=== PATIENT | female | born 1995 | race American Indian/Alaskan Native ===

== ENCOUNTER 2017-04-14 20:53 | Emergency (ER) | payer SELFPAY ==
[2017-04-14 21:49] VITALS: BP 120/82
[2017-04-14 22:10] LABS: Basophils % (Auto) 0.6 % (0.0-1.8); Eosinophils % (Auto) 3.2 % (0.0-4.3); Hematocrit 38.2 % (30.3-42.9); Hemoglobin 13.2 gm/dl (10.1-14.3); Mean Corpuscular HGB Conc 35 % (30-34); Mean Corpuscular Hemoglobin 35 pg (28-32); Mean Corpuscular Volume 100 fl (79-97); Platelet Count 325 K/mm3 (140-440); Red Blood Count 3.81 M/mm3 (3.65-5.03); Red Cell Distribution Width 12.9 % (13.2-15.2); White Blood Count 10.7 K/mm3 (4.5-11.0)
--- NOTE | 2017-04-14 23:22 | Emergency Department Report ---
ED Back Pain/Injury HPI - General Chief Complaint: Back Pain/Injury Stated Complaint: LOWER BACK PAIN Time Seen by Provider: 04/14/17 22:44 Source: patient Limitations: No Limitations - History of Present Illness Initial Comments: This is a 22-year-old female nontoxic, well nourished in appearance, no acute signs of distress presents to the ED complaining of low back pain 1 week. Patient denies any trauma to region. Patient stated back pain radiates to lower left extremity. Patient denies any numbness, tingling, fever, chills, stiff neck, headache, nausea or vomiting. He describes pain as aching with level of 8 out of 10. He denies any dysuria, polyuria, or hematuria. Last menstrual cycle 04/13/70. Patient states allergies to ibuprofen. 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 MD Complaint: back pain -: Gradual, week(s) (1) Similar Symptoms Previously: No Radiation: left leg Severity: mild Severity scale (0 -10): 8 Quality: aching Consistency: constant Improves With: none Worsens With: none Context: while lifting, turning/twisting, bending Associated Symptoms: denies other symptoms. denies: confusion, weakness, chest pain, numbness, difficulty walking, cough, difficulty urinating, diaphoresis, incontinence, fever/chills, constipation, headaches, abdominal pain, loss of appetite, malaise, nausea/vomiting, rash, seizure, shortness of breath, syncope - Related Data Previous Rx's Medication Instructions Recorded Last Taken Type Naproxen [Naproxen TAB] 250 mg PO BID PRN #14 tablet 08/12/16 Unknown Rx Cyclobenzaprine [Flexeril] 10 mg PO TID PRN #15 tablet 04/14/17 Unknown Rx Naproxen [Naprosyn TAB] 500 mg PO BID #30 tablet 04/14/17 Unknown Rx Ciprofloxacin HCl [Ciprofloxacin 500 mg PO Q12HR #14 tab 04/15/17 Unknown Rx TAB] Allergies Allergy/AdvReac Type Severity Reaction Status Date / Time ibuprofen [From Motrin] AdvReac Vomiting Verified 04/14/17 21:38 ED Review of Systems ROS: Stated complaint: LOWER BACK PAIN Other details as noted in HPI Constitutional: denies: chills, fever Eyes: denies: eye pain, eye discharge, vision change ENT: denies: ear pain, throat pain Respiratory: denies: cough, shortness of breath, wheezing Cardiovascular: denies: chest pain, palpitations Endocrine: no symptoms reported Gastrointestinal: denies: abdominal pain, nausea, diarrhea Genitourinary: denies: urgency, dysuria, discharge Musculoskeletal: denies: back pain, joint swelling, arthralgia Skin: denies: rash, lesions Neurological: denies: headache, weakness, paresthesias Psychiatric: denies: anxiety, depression Hematological/Lymphatic: denies: easy bleeding, easy bruising ED Past Medical Hx - Past Medical History Previous Medical History?: No Hx Hypertension: Yes Hx Renal Disease: Yes (DIALYSIS ) Hx Psychiatric Treatment: (depression) Additional medical history: Pt Denies - Surgical History Past Surgical History?: No Additional Surgical History: Pt Denies - Social History Smoking Status: Current Every Day Smoker Substance Use Type: None - Medications Home Medications: Home Medications Medication Instructions Recorded Confirmed Last Taken Type Naproxen [Naproxen TAB] 250 mg PO BID PRN #14 tablet 08/12/16 Unknown Rx Cyclobenzaprine [Flexeril] 10 mg PO TID PRN #15 tablet 04/14/17 Unknown Rx Naproxen [Naprosyn TAB] 500 mg PO BID #30 tablet 04/14/17 Unknown Rx Ciprofloxacin HCl [Ciprofloxacin 500 mg PO Q12HR #14 tab 04/15/17 Unknown Rx TAB] ED Physical Exam - General Limitations: No Limitations General appearance: alert, in no apparent distress - Head Head exam: Present: atraumatic, normocephalic, normal inspection - Eye Eye exam: Present: normal appearance, PERRL, EOMI. Absent: scleral icterus, conjunctival injection, nystagmus, periorbital swelling, periorbital tenderness Pupils: Present: normal accommodation - ENT ENT exam: Present: normal exam, normal orophraynx, mucous membranes moist, TM's normal bilaterally, normal external ear exam - Neck Neck exam: Present: normal inspection, full ROM. Absent: tenderness, meningismus, lymphadenopathy, thyromegaly - Respiratory Respiratory exam: Present: normal lung sounds bilaterally. Absent: respiratory distress, wheezes, rales, rhonchi, stridor, chest wall tenderness, accessory muscle use, decreased breath sounds, prolonged expiratory - Cardiovascular Cardiovascular Exam: Present: regular rate, normal rhythm, normal heart sounds. Absent: bradycardia, tachycardia, irregular rhythm, systolic murmur, diastolic murmur, rubs, gallop - GI/Abdominal GI/Abdominal exam: Present: soft, normal bowel sounds. Absent: distended, tenderness, guarding, rebound, rigid, diminished bowel sounds - Rectal Rectal exam: Present: deferred - Extremities Exam Extremities exam: Present: normal inspection, full ROM, normal capillary refill. Absent: tenderness, pedal edema, joint swelling, calf tenderness - Back Exam Back exam: Present: normal inspection, full ROM, paraspinal tenderness (lumbar region), vertebral tenderness (lumbar spinal tenderness). Absent: tenderness, CVA tenderness (R), CVA tenderness (L), muscle spasm, rash noted - Expanded Back Exam Expanded Back exam: Present: normal rectal tone. Absent: saddle anesthesia Back exam: Negative Straight Leg Raising: Left, Right - Neurological Exam Neurological exam: Present: alert, oriented X3, CN II-XII intact, normal gait, reflexes normal - Psychiatric Psychiatric exam: Present: normal affect, normal mood - Skin Skin exam: Present: warm, dry, intact, normal color. Absent: rash ED Course Vital Signs 04/14/17 21:36 Temperature 99.0 F Pulse Rate 87 Respiratory 18 Rate Blood Pressure 120/82 O2 Sat by Pulse 100 Oximetry - Reevaluation(s) Reevaluation #1: 04/14/17 23:22 Patient is speaking in full sentences with no signs of distress noted. Reevaluation #2: 04/14/17 23:25 pt stated take Naproxen at home with no allergies or adverse side effects ED Medical Decision Making - Lab Data Result diagrams: 04/14/17 21:55 - Differential Diagnosis uti, pyelonephritis, lumbar radiculopathy, low back strain, sciatica Critical care attestation.: If time is entered above; I have spent that time in minutes in the direct care of this critically ill patient, excluding procedure time. ED Disposition Clinical Impression: Muscle strain Low back strain Qualifiers: Encounter type: initial encounter Qualified Code(s): S39.012A - Strain of muscle, fascia and tendon of lower back, initial encounter UTI (urinary tract infection) Qualifiers: Urinary tract infection type: site unspecified Hematuria presence: without hematuria Qualified Code(s): N39.0 - Urinary tract infection, site not specified Disposition: DC-01 TO HOME OR SELFCARE Is pt being admited?: No Does the pt Need Aspirin: No Condition: Stable Instructions: Naproxen (By mouth), Cyclobenzaprine (By mouth), Low Back Strain (ED), Muscle Spasm (ED), Urinary Tract Infection in Women (ED) Additional Instructions: Follow-up with a primary care doctor in 3-5 days or if symptoms worsen or continue return to emergency room as soon as possible. Take naproxen and Flexeril as prescribed. Do not operate heavy machinery while taking Flexeril due to sedation Prescriptions: Ciprofloxacin HCl [Ciprofloxacin TAB] 500 mg PO Q12HR #14 tab Cyclobenzaprine [Flexeril] 10 mg PO TID PRN #15 tablet PRN Reason: Muscle Spasm Naproxen [Naprosyn TAB] 500 mg PO BID #30 tablet Referrals: [facility] [Outside] - 3-5 Days [facility] [Outside] - 3-5 Days KIANA ADEN MD [Staff Physician] - 3-5 Days [facility] [Primary Care Provider] - 3-5 Days Forms: Work/School Release Form(ED)
[2017-04-14 23:28] LABS: Bilirubin,Urine NEG (Negative); Blood,Urine MOD (Negative); Ketones,Urine NEG (Negative); Leukocyte Esterase,Urine TR (Negative); Mucus,Urine 3+ /HPF; Nitrite,Urine NEG (Negative); Protein,Urine <15 mg/dL mg/dL (Negative)
--- NOTE | 2017-04-15 01:15 | XRay Report ---
FINAL REPORT PROCEDURE: XR SPINE LUMBOSACRAL 2-3V TECHNIQUE: Lumbar spine radiographs, including AP, lateral, and lumbosacral spot views. CPT 94294 HISTORY: spinal tenderness COMPARISON: No prior studies are available for comparison. FINDINGS: Alignment: Normal. Vertebral body heights/Disk spaces: Normal. Fracture(s): None. Facets: Normal. Bone mineralization: Normal. IMPRESSION: Normal Examination.
== END 2017-04-15 00:42 | disposition home or self-care (01) ==
LOC: ED 20:53
DX: S39.012A Strain of muscle, fascia and tendon of lower back, initial encounter (principal); N39.0 Urinary tract infection, site not specified; I12.0 Hypertensive chronic kidney disease with stage 5 chronic kidney disease or end stage renal disease; N18.6 End stage renal disease; F17.210 Nicotine dependence, cigarettes, uncomplicated; Z99.2 Dependence on renal dialysis; X50.0XXA Overexertion from strenuous movement or load, initial encounter; Y93.89 Activity, other specified; Y92.89 Other specified places as the place of occurrence of the external cause; Y99.8 Other external cause status; Z88.6 Allergy status to analgesic agent
CPT/HCPCS: 36415; 72100; 81001; 84703; 85025; 99284

== ENCOUNTER 2019-10-19 09:59 | Emergency (ER) | payer MEDICAID ==
[2019-10-19 11:14] LABS: Basophils % (Auto) 0.4 % (0.0-1.8); Eosinophils # (Auto) 0.3 K/mm3 (0.0-0.4); Eosinophils % (Auto) 4.2 % (0.0-4.3); Hematocrit 35.9 % (30.3-42.9); Hemoglobin 12.2 gm/dl (10.1-14.3); Lymphocytes # (Auto) 1.6 K/mm3 (1.2-5.4); Lymphocytes % (Auto) 21.5 % (13.4-35.0); Mean Corpuscular HGB Conc 34 % (30-34); Mean Corpuscular Volume 103 fl (79-97); Monocytes # (Auto) 0.8 K/mm3 (0.0-0.8); Monocytes % (Auto) 10.3 % (0.0-7.3); Platelet Count 356 K/mm3 (140-440); Red Blood Count 3.49 M/mm3 (3.65-5.03); Red Cell Distribution Width 13.1 % (13.2-15.2)
[2019-10-19 11:38] LABS: Alanine Aminotransferase 9 units/L (7-56); Albumin 4.1 g/dL (3.9-5); BUN/Creatinine Ratio 18; Blood Urea Nitrogen 9 mg/dL (7-17); Calcium 8.8 mg/dL (8.4-10.2); Hemolysis Index 3
--- NOTE | 2019-10-19 11:49 | Emergency Department Report ---
ED Abdominal Pain HPI - General Chief Complaint: Abdominal Pain Stated Complaint: CHEST PAIN,N/V STOMACH PAIN Time Seen by Provider: 10/19/19 11:33 Source: patient Mode of arrival: Ambulatory Limitations: No Limitations - History of Present Illness Initial Comments: 24-year-old -[place] female presents to the emergency room for intermittent chest pain that is midsternal that feels like needles. And epigastric abdominal pain is been intermittent with nausea and vomiting for 2 days. Patient's last menstrual period was 09/17/2019. Patient states that the pain is about a 7 out of 10. Pain is worse with lying down better with applying pressure. Patient currently is on no control she has no cancer no travels and her last 2 weeks. Patient is taken nothing for her pain. She denies any dysuria denies any abnormal vaginal discharge denies any headache. She admits that she is sexually active without protection. She is 3 para 1 with 2 miscarriages. MD Complaint: abdominal pain, other (Midsternal chest pain) Onset/Timin -: days(s) Location: epigastric Radiation: none Migration to: no migration Severity scale (0 -10): 7 Quality: other (Needle like pain) Consistency: intermittent Improves With: other (Applying pressure) Worsens With: other (Lying down) Associated Symptoms: nausea, vomiting - Related Data LMP Date: 09/17/19 Home Medications Medication Instructions Recorded Confirmed Last Taken Famotidine [Pepcid] 1 tab PO DAILY 05/29/18 07/15/18 Unknown Ferrous Sulfate 325 mg PO BID 05/29/18 07/15/18 07/12/18 Vit-Fe Fumar-FA [ 1 tab PO QDAY 05/29/18 07/15/18 05/29/18 09:00 Vitamin] 1 Previous Rx's Medication Instructions Recorded Last Taken Type oxyCODONE /ACETAMINOPHEN [Percocet 1 tab PO Q4HR PRN 14 Days #30 tab 07/14/18 Unknown Rx 5/325] Ferrous Sulfate [Feosol 325 MG tab] 325 mg PO QDAY #30 tablet 07/17/18 Unknown Rx Allergies Allergy/AdvReac Type Severity Reaction Status Date / Time ibuprofen [From Motrin] AdvReac Vomiting Verified 04/14/17 21:38 ED Review of Systems ROS: Stated complaint: CHEST PAIN,N/V STOMACH PAIN Other details as noted in HPI Comment: All other systems reviewed and negative ED Past Medical Hx - Past Medical History Previous Medical History?: No Hx Hypertension: No Hx Congestive Heart Failure: No Hx Diabetes: No Hx Deep Vein Thrombosis: No Hx Renal Disease: No Hx Sickle Cell Disease: No Hx Seizures: No Hx Psychiatric Treatment: (depression) Hx Asthma: No Hx COPD: No Hx HIV: No Additional medical history: Pt Denies - Surgical History Past Surgical History?: No Additional Surgical History: Pt Denies - Social History Smoking Status: Current Every Day Smoker - Medications Home Medications: Home Medications Medication Instructions Recorded Confirmed Last Taken Type Famotidine [Pepcid] 1 tab PO DAILY 05/29/18 07/15/18 Unknown History Ferrous Sulfate 325 mg PO BID 05/29/18 07/15/18 07/12/18 History Vit-Fe Fumar-FA [ 1 tab PO QDAY 05/29/18 07/15/18 05/29/18 09:00 History Vitamin] 1 oxyCODONE /ACETAMINOPHEN [Percocet 1 tab PO Q4HR PRN 14 Days #30 tab 07/14/18 Unknown Rx 5/325] Ferrous Sulfate [Feosol 325 MG tab] 325 mg PO QDAY #30 tablet 07/17/18 Unknown Rx ED Physical Exam - General Limitations: No Limitations General appearance: alert, in no apparent distress, other (Comfortably texting in bed) - Head Head exam: Present: atraumatic, normocephalic - Eye Eye exam: Present: normal appearance - ENT ENT exam: Present: mucous membranes moist - Respiratory Respiratory exam: Present: normal lung sounds bilaterally, chest wall tende rness. Absent: respiratory distress, wheezes, rales, rhonchi - Cardiovascular Cardiovascular Exam: Present: regular rate, normal rhythm. Absent: systolic murmur, diastolic murmur, rubs, gallop - GI/Abdominal GI/Abdominal exam: Present: soft, tenderness (Epigastric tenderness). Absent: distended, guarding, rebound, mass - Extremities Exam Extremities exam: Present: normal inspection, full ROM - Back Exam Back exam: Present: normal inspection, full ROM - Neurological Exam Neurological exam: Present: alert, oriented X3 - Psychiatric Psychiatric exam: Present: normal affect, normal mood - Skin Skin exam: Present: warm, dry, intact, normal color. Absent: rash ED Course Vital Signs 10/19/19 10/19/19 10/19/19 11:48 12:38 12:39 Temperature 97.9 F Pulse Rate 85 87 Respiratory 15 17 18 Rate Blood Pressure 97/67 100/57 [Left] O2 Sat by Pulse 100 100 100 Oximetry - Reevaluation(s) Reevaluation #1: 10/19/19 11:39 Discussed with Gerald and lab to add lipase and hCG quantitative ED Medical Decision Making - Lab Data Result diagrams: 10/19/19 10:43 10/19/19 10:43 - Radiology Data Radiology results: report reviewed Patient: PHILIP MENG MR#: [id number] : 1995 Acct:[id number] Age/Sex: 24 / F ADM Date: 10/19/19 Loc: ED Attending Dr: Ordering Physician: MICHAEL MIGUEL Date of Service: 10/19/19 Procedure(s): US OB transvaginal Accession Number(s): [id number] cc: MICHAEL MIGUEL ULTRASOUND OBSTETRIC Indication: positive preg abd pain Findings: Small fluid collection is noted in the endometrial cavity possibly representing an early gestational sac. No pole or yolk sac is seen at this time. Based on size this would correlate to a 5 week 2 day gestation. There is a 1.4 cm cyst in the left ovary. The right ovary is unremarkable. The uterus measures 9.4 cm. Nabothian cysts are noted in the cervix. Impression: There is a small fluid collection in endometrial cavity. No definite yolk sac or pole is seen. This may simply be a which is too early to visualize. Correlation with serum beta hCG level is recommended. Follow-up ultrasound should be performed as clinically warranted. Signer Name: Martin Carrillo MD Signed: 10/19/2019 1:34 PM Workstation Name: [id number] Transcribed By: Dictated By: Martin Carrillo MD Electronically Authenticated By: Martin Carrillo MD Signed Date/Time: 10/19/19 1334 DD/ 1331 TD/TT: - Medical Decision Making 24-year-old -[place] female presents to the emergency room for intermittent chest pain that is midsternal that feels like needles. And epigastric abdominal pain is been intermittent with nausea and vomiting for 2 days. Patient's last menstrual period was 09/17/2019. Patient states that the pain is about a 7 out of 10. Pain is worse with lying down better with applying pressure. Patient currently is on no control she has no cancer no travels and her last 2 weeks. Patient is taken nothing for her pain. She denies any dysuria denies any abnormal vaginal discharge denies any headache. She admits that she is sexually active without protection. She is 3 para 1 with 2 miscarriages. CBC, CMP, positive hCG qualitative hCG quantitative has been ordered, ultrasound less than 14 weeks with transvaginal has been ordered. Critical care attestation.: If time is entered above; I have spent that time in minutes in the direct care of this critically ill patient, excluding procedure time. ED Disposition Clinical Impression: Abdominal pain, Positive blood test, Early stage of , Chest wall tenderness Disposition: DC-01 TO HOME OR SELFCARE Is pt being admited?: No Does the pt Need Aspirin: No Condition: Stable Instructions: Abdominal Pain (ED), Chest Pain (ED) Additional Instructions: You had a positive test. Ultrasound shows that you are possibly too early for detection. We recommend for you to follow-up with the [facility] to have repeat hCG and ultrasound. You can take Tylenol only for pain. Referrals: [facility]IMARY [facility], [Primary Care Provider] - 3-5 Days [facility] [Provider Group] - 3-5 Days [facility] [Provider Group] - 3-5 Days Forms: Work/School Release Form(ED)
--- NOTE | 2019-10-19 13:38 | Ultrasound Report ---
ULTRASOUND OBSTETRIC Indication: positive preg abd pain Findings: Small fluid collection is noted in the endometrial cavity possibly representing an early gestational sac. No pole or yolk sac is seen at this time. Based on size this would correlate to a 5 week 2 day gestation. There is a 1.4 cm cyst in the left ovary. The right ovary is unremarkable. The uterus measures 9.4 cm . Nabothian cysts are noted in the cervix. Impression: There is a small fluid collection in endometrial cavity. No definite yolk sac or pole is seen. This may simply be a which is too early to visualize. Correlation with serum beta hCG level is recommended. Follow-up ultrasound should be performed as clinically warranted. Signer Name: Martin Carrillo MD Signed: 10/19/2019 1:34 PM Workstation Name: [id number]
[2019-10-19 15:04] VITALS: BP 129/66
== END 2019-10-19 15:03 | disposition home or self-care (01) ==
LOC: ED 09:59
DX: O26.891 Other specified pregnancy related conditions, first trimester (principal); R07.89 Other chest pain; O21.8 Other vomiting complicating pregnancy; R11.0 Nausea; Z3A.01 Less than 8 weeks gestation of pregnancy
CPT/HCPCS: 36415; 76801; 76817; 80053; 83690; 84702; 84703; 85025

== ENCOUNTER 2019-11-15 22:31 | Emergency (ER) | payer MEDICAID ==
[2019-11-15] MEDS ORDERED: ACETAMINOPHEN 500 MG TAB PO ONE (22:59)
--- NOTE | 2019-11-15 23:37 | Ultrasound Report ---
TRANSABDOMINAL OB PELVIC ULTRASOUND INDICATION / CLINICAL INFORMATION: Vaginal bleeding. COMPARISON: 10/19/19. FINDINGS: The uterus measures 10.0 x 5.2 x 6.7 cm. The endometrial stripe measures approximately 1.6 cm AP. I d o not identify an intrauterine gestational sac. The right ovary measures 2.9 x 1.8 x 1.7 cm. The left ovary measures 3.3 x 2.6 x 2.2 cm and contains a 1.3 cm physiologic cyst. I see no evidence of an extraovarian mass or free fluid. IMPRESSION: No evidence of intrauterine or extrauterine . Please note that the patient decli leonel transvaginal scanning. Signer Name: Hi Arvizu MD Signed: 11/15/2019 11:33 PM Workstation Name: [id number]
[2019-11-16 00:15] LABS: Basophils # (Auto) 0.1 K/mm3 (0.0-0.1); Basophils % (Auto) 0.3 % (0.0-1.8); Eosinophils # (Auto) 0.1 K/mm3 (0.0-0.4); Eosinophils % (Auto) 0.8 % (0.0-4.3); Hematocrit 35.4 % (30.3-42.9); Hemoglobin 12.1 gm/dl (10.1-14.3); Lymphocytes # (Auto) 2.1 K/mm3 (1.2-5.4); Lymphocytes % (Auto) 12.6 % (13.4-35.0); Mean Corpuscular HGB Conc 34 % (30-34); Mean Corpuscular Volume 103 fl (79-97); Monocytes # (Auto) 1.4 K/mm3 (0.0-0.8); Monocytes % (Auto) 8.1 % (0.0-7.3); Platelet Count 365 K/mm3 (140-440); Red Blood Count 3.45 M/mm3 (3.65-5.03); Red Cell Distribution Width 13.4 % (13.2-15.2)
[2019-11-16 00:36] LABS: Alanine Aminotransferase 11 units/L (7-56); Albumin 4.3 g/dL (3.9-5); BUN/Creatinine Ratio 16; Blood Urea Nitrogen 8 mg/dL (7-17); Calcium 9.4 mg/dL (8.4-10.2); Hemolysis Index 7
[2019-11-16 02:50] VITALS: BP 89/47
[2019-11-16] MEDS ORDERED: POTASSIUM CHLORIDE ER 20 MEQ TAB PO ONE (03:03)
--- NOTE | 2019-11-16 03:37 | Emergency Department Report ---
ED Female HPI - General Chief complaint: Vaginal Bleeding Stated complaint: POSS MISCARRIAGE Source: patient Mode of arrival: Ambulatory Limitations: No Limitations - History of Present Illness Initial comments: Patient is a A1 24 yo AA female who is approximately 4-5 weeks gestation and who presented to the ED with complaint of acute onset persistent pelvic pain and heavy vaginal bleeding for the last 6 hours. Patient states that the bleeding has been heavy with blood clots since the onset especially in the last 2 hours. Patient states that she was initially evaluated in this ED for the same about 4 weeks ago and at that time she was told that she had tested positive for and transvaginal ultrasound was negative for any IUP. Patient admits to not having followed up with any [employer] physician after the ED visit. Patient states that her LMP was September 27, 2019. Patient however denies fever, chills, nausea and vomiting, diarrhea, dizziness, syncope, low back pain, dysuria, urinary frequency and urgency, vaginal discharge, traumatic injury or fall. Patient however states that in the last 24 hours she has been cleaning the house and moving heavy furniture. MD Complaint: vaginal bleeding, pelvic pain -: Sudden, hour(s) (6) Location: suprapubic, other (vaginal) Radiation: suprapubic Severity: moderate Severity scale (0 -10): 6 Quality: cramping, sharp Consistency: constant Improves with: none Worsens with: none Are you Now?: Yes ( 4-5 weeks) Last Menstrual Period: 09/27/19 EDC: 07/03/20 Associated Symptoms: denies other symptoms, vaginal bleeding, abdominal pain, loss of appetite. denies: nausea/vomiting, fever/chills, headaches, dysuria, hematuria, rash, shortness of breath, syncope, weakness - Related Data Sexually active: Yes : 3 Para: 1 A: 1 Home Medications Medication Instructions Recorded Confirmed Last Taken Famotidine [Pepcid] 1 tab PO DAILY 05/29/18 07/15/18 Unknown Ferrous Sulfate 325 mg PO BID 05/29/18 07/15/18 07/12/18 Vit-Fe Fumar-FA [ 1 tab PO QDAY 05/29/18 07/15/18 05/29/18 09:00 Vitamin] 1 Previous Rx's Medication Instructions Recorded Last Taken Type oxyCODONE /ACETAMINOPHEN [Percocet 1 tab PO Q4HR PRN 14 Days #30 tab 07/14/18 Unknown Rx 5/325] Ferrous Sulfate [Feosol 325 MG tab] 325 mg PO QDAY #30 tablet 07/17/18 Unknown Rx Acetaminophen [Mapap] 500 mg PO Q6H PRN #30 tablet 11/16/19 Unknown Rx cephALEXin [Keflex] 500 mg PO Q8HR #30 capsule 11/16/19 Unknown Rx Allergies Allergy/AdvReac Type Severity Reaction Status Date / Time ibuprofen [From Motrin] AdvReac Vomiting Verified 04/14/17 21:38 ED Review of Systems ROS: Stated complaint: POSS MISCARRIAGE Other details as noted in HPI Constitutional: denies: chills, fever Eyes: denies: eye pain, eye discharge, vision change ENT: denies: ear pain, throat pain Respiratory: denies: cough, shortness of breath, wheezing Cardiovascular: denies: chest pain, palpitations Endocrine: no symptoms reported Gastrointestinal: abdominal pain (suprapubic). denies: nausea, vomiting, diarrhea Genitourinary: abnormal menses (heavy vaginal bleeding with blood). denies: urgency, dysuria, discharge Musculoskeletal: denies: back pain, joint swelling, arthralgia Skin: denies: rash, lesions Neurological: denies: headache, weakness, paresthesias Psychiatric: denies: anxiety, depression Hematological/Lymphatic: denies: easy bleeding, easy bruising ED Past Medical Hx - Past Medical History Previous Medical History?: No Hx Hypertension: No Hx Congestive Heart Failure: No Hx Diabetes: No Hx Deep Vein Thrombosis: No Hx Renal Disease: No Hx Sickle Cell Disease: No Hx Seizures: No Hx Psychiatric Treatment: (depression) Hx Asthma: No Hx COPD: No Hx HIV: No Additional medical history: Pt Denies - Surgical History Past Surgical History?: No Additional Surgical History: Pt Denies - Social History Smoking Status: Current Every Day Smoker Substance Use Type: None - Medications Home Medications: Home Medications Medication Instructions Recorded Confirmed Last Taken Type Famotidine [Pepcid] 1 tab PO DAILY 05/29/18 07/15/18 Unknown History Ferrous Sulfate 325 mg PO BID 05/29/18 07/15/18 07/12/18 History Vit-Fe Fumar-FA [ 1 tab PO QDAY 05/29/18 07/15/18 05/29/18 09:00 History Vitamin] 1 oxyCODONE /ACETAMINOPHEN [Percocet 1 tab PO Q4HR PRN 14 Days #30 tab 07/14/18 Unknown Rx 5/325] Ferrous Sulfate [Feosol 325 MG tab] 325 mg PO QDAY #30 tablet 07/17/18 Unknown Rx Acetaminophen [Mapap] 500 mg PO Q6H PRN #30 tablet 11/16/19 Unknown Rx cephALEXin [Keflex] 500 mg PO Q8HR #30 capsule 11/16/19 Unknown Rx ED Physical Exam - General Limitations: No Limitations General appearance: alert, in no apparent distress - Head Head exam: Present: atraumatic, normocephalic, normal inspection - Eye Eye exam: Present: normal appearance, PERRL, EOMI Pupils: Present: normal accommodation - ENT ENT exam: Present: normal exam, normal orophraynx, mucous membranes moist, TM's normal bilaterally, normal external ear exam - Neck Neck exam: Present: normal inspection, full ROM - Respiratory Respiratory exam: Present: normal lung sounds bilaterally. Absent: respiratory distress, wheezes, rales, rhonchi, chest wall tenderness, accessory muscle use, decreased breath sounds, prolonged expiratory - Cardiovascular Cardiovascular Exam: Present: normal rhythm, tachycardia, normal heart sounds. Absent: systolic murmur, diastolic murmur, rubs, gallop - GI/Abdominal GI/Abdominal exam: Present: soft, tenderness (suprapubic), normal bowel sounds. Absent: distended, guarding, rebound, hyperactive bowel sounds, hypoactive bowel sounds, organomegaly - Bi-manual exam: Present: other (Pelvic exam declined by patient) - Extremities Exam Extremities exam: Present: normal inspection, full ROM, normal capillary refill - Back Exam Back exam: Present: normal inspection, full ROM. Absent: tenderness, CVA tenderness (R), muscle spasm, paraspinal tenderness, vertebral tenderness - Neurological Exam Neurological exam: Present: alert, oriented X3, CN II-XII intact, normal gait, reflexes normal - Psychiatric Psychiatric exam: Present: normal affect, normal mood - Skin Skin exam: Present: warm, dry, intact, normal color. Absent: rash ED Course Vital Signs 11/15/19 11/16/19 22:35 02:49 Temperature 98.8 F 98.2 F Pulse Rate 120 H 81 Respiratory 20 15 Rate Blood Pressure 130/88 Blood Pressure 89/47 [Right] O2 Sat by Pulse 97 100 Oximetry ED Medical Decision Making - Lab Data Result diagrams: 11/15/19 23:30 11/15/19 23:30 - Radiology Data Radiology results: report reviewed, image reviewed Findings [facility] [address] [place] [address] Ultrasound Report Signed Patient: PHILIP MENG MR#: [id number] : 1995 Acct:[id number] Age/Sex: 24 / F ADM Date: 11/15/19 Loc: ED Attending Dr: Ordering Physician: ROGER DOTSON MD Date of Service: 11/15/19 Procedure(s): US OB <= 14 weeks fetus Accession Number(s): [id number] cc: ROGER DOTSON MD TRANSABDOMINAL OB PELVIC ULTRASOUND INDICATION / CLINICAL INFORMATION: Vaginal bleeding. COMPARISON: 10/19/19. FINDINGS: The uterus measures 10.0 x 5.2 x 6.7 cm. The endometrial stripe measures approximately 1.6 cm AP. I do not identify an intrauterine gestational sac. The right ovary measures 2.9 x 1.8 x 1.7 cm. The left ovary measures 3.3 x 2.6 x 2.2 cm and contains a 1.3 cm physiologic cyst. I see no evidence of an extraovarian mass or free fluid. IMPRESSION: No evidence of intrauterine or extrauterine . Please note that the patient declined transvaginal scanning. Signer Name: Hi Arvizu MD Signed: 11/15/2019 11:33 PM Workstation Name: [id number] Transcribed By: RT Dictated By: Hi Arvizu MD Electronically Authenticated By: Hi Arvizu MD Signed Date/Time: 11/15/192332 DD/ 29 TD/TT: - Medical Decision Making This is a A1 24-year-old -[place] female who is approximately 4-6 weeks gestation based on her LMP which was September 27, 2019, and who presented to the ED with acute onset persistent pelvic pain with heavy vaginal bleeding for the last 6 hours after heavy lifting of furniture at home. Patient states that the pain has been persistent as well as the vaginal bleeding which she describes as large blood clots. In the ED, patient is alert and oriented x3 and is not in distress, crying during the physical exam, and tachycardic and afebrile in triage. Lab test results [place] [address], acute hypokalemia of 3.1 mmol/L and acute leukocytosis of 17,000. Urinalysis showed mild urinary tract infection. Patient was treated for pain in the ED with Tylenol and also given Klor-Con 40 mEq p.o. x1. Patient declined transvaginal ultrasound scanning stating "because am bleeding ", but consented to pelvic ultrasound which was performed and which showed no evidence of intrauterine or extrauterine . [place] [address] is significantly elevated compared to the previous hCG quant value of 3970 about 4 weeks ago. About 4 weeks ago the patient transvaginal ultrasound was negative for any IUP but considering the fact that the patient's LMP was September 27, 2019, at that time the was too early for IUP to be identified by transvaginal ultrasound. Given the fact that the patient declined transvaginal ultrasound during this visit today even after explaining to the patient the importance of having this study done patient was still adamant and stated that she does not want transvaginal ultrasound performed at this time. Patient opted to leave the ED AMA and never waited for her other test results including urinalysis, stating family emergency. Patient was therefore advised to return to the ED within 48 hours for recheck of hCG quant and repeat of the ultrasound to determine the viability of the . Patient verbalized understanding and promised to return to the ED in 48 hours since she does not have an [employer] physician to follow-up with at this time. - Differential Diagnosis Ectopic ; Threatened miscarriage; Ovarian cyst; Dermoid cyst; UTI Critical care attestation.: If time is entered above; I have spent that time in minutes in the direct care of this critically ill patient, excluding procedure time. ED Disposition Clinical Impression: Threatened miscarriage, Vaginal bleeding in , Acute urinary tract infection Abdominal pain in Qualifiers: Trimester: first trimester Qualified Code(s): O26.891 - Other specified related conditions, first trimester Disposition: DC-07 LEFT AGAINST MED ADVICE Is pt being admited?: No Does the pt Need Aspirin: No Condition: Stable Instructions: Threatened Miscarriage (ED), Abdominal Pain in (ED) Additional Instructions: Return to the ED in 48 hours for repeat hCG Quant and transvaginal US to determine and characterize the viability of . Meanwhile maintain a complete pelvic rest with no straineous physical activity, taking Tylenol as needed for pain Prescriptions: cephALEXin [Keflex] 500 mg PO Q8HR #30 capsule Acetaminophen [Mapap] 500 mg PO Q6H PRN #30 tablet PRN Reason: Pain , Severe (7-10) Referrals: PRIMARY CARE, [Primary Care Provider] - 3-5 Days Forms: AMA Form Time of Disposition: 04:00 Print Language: YAKUT
[2019-11-16 04:00] LABS: Bilirubin,Urine NEG (Negative); Blood,Urine LG (Negative); Color,Urine Yellow (Yellow); Mucus,Urine 3+ /HPF; Urobilinogen,Urine < 2.0 mg/dL (<2.0)
[2019-11-16 04:01] LABS: RBC,Urine > 182.0 /HPF (0.0-6.0)
== END 2019-11-16 04:12 | disposition left against medical advice (07) ==
LOC: ED 22:31
DX: O20.0 Threatened abortion (principal); O23.41 Unspecified infection of urinary tract in pregnancy, first trimester; O26.891 Other specified pregnancy related conditions, first trimester; R10.9 Unspecified abdominal pain; F32.9 Major depressive disorder, single episode, unspecified; O99.331 Smoking (tobacco) complicating pregnancy, first trimester; Z3A.01 Less than 8 weeks gestation of pregnancy; Z79.899 Other long term (current) drug therapy; Z88.8 Allergy status to other drugs, medicaments and biological substances
CPT/HCPCS: 36415; 76801; 80053; 81001; 83690; 84702; 85025; 86850; 86900; 86901; 87086

== ENCOUNTER 2022-01-12 12:34 | Emergency (ER) | payer MEDICAID ==
[2022-01-12 12:52] VITALS: BP 145/64
--- NOTE | 2022-01-12 13:23 | XRay Report ---
CHEST 2 VIEWS INDICATION / CLINICAL INFORMATION: Chest pain/pressure since 8:30 this morning. Shortness of breath a nd near syncope. COMPARISON: None available. FINDINGS: SUPPORT DEVICES: None. HEART / MEDIASTINUM: The heart size and pulmonary vasculature are normal. The aorta is normal in atif yolande. LUNGS / PLEURA: No significant pulmonary or pleural abnormality. No pneumothorax. ADDITIONAL FINDINGS: No significant additional findings. IMPRESSION: No acute findings. Signer Name: Hi Arviuz MD Signed: 01/12/2022 1:19 PM Workstation Name: [id number]
[2022-01-12 14:45] LABS: Basophils % (Auto) 0.6 % (0.0-1.8); Eosinophils # (Auto) 0.2 K/mm3 (0.0-0.4); Hematocrit 38.3 % (30.3-42.9); Hemoglobin 12.9 gm/dl (10.1-14.3); Lymphocytes # (Auto) 2.2 K/mm3 (1.2-5.4); Lymphocytes % (Auto) 27.8 % (13.4-35.0); Mean Corpuscular HGB Conc 34 % (30-34); Mean Corpuscular Volume 100 fl (79-97); Monocytes # (Auto) 0.8 K/mm3 (0.0-0.8); Monocytes % (Auto) 10.1 % (0.0-7.3); Platelet Count 372 K/mm3 (140-440); Red Blood Count 3.84 M/mm3 (3.65-5.03); Red Cell Distribution Width 12.9 % (13.2-15.2)
[2022-01-12 14:57] LABS: INR 0.92 (0.87-1.13)
[2022-01-12 14:58] LABS: Partial Thromboplastin Time 28.1 Sec. (24.2-36.6)
[2022-01-12 15:00] LABS: Alanine Aminotransferase 22 units/L (7-56); Albumin 4.5 g/dL (3.9-5); Blood Urea Nitrogen 8 mg/dL (7-17); Calcium 9.1 mg/dL (8.4-10.2); Hemolysis Index 7
[2022-01-12 15:01] LABS: BUN/Creatinine Ratio 11
[2022-01-12 15:35] LABS: Bilirubin,Urine NEG (Negative); Blood,Urine NEG (Negative); Color,Urine Yellow (Yellow); Mucus,Urine 1+ /HPF; Protein,Urine <15 mg/dL mg/dL (Negative); RBC,Urine < 1.0 /HPF (0.0-6.0)
--- NOTE | 2022-01-12 15:37 | Emergency Department Report ---
ED General Adult HPI - General Chief complaint: Chest Pain Stated complaint: CHEST RACING/SHAKING Time Seen by Provider: 01/12/22 14:30 Source: patient Mode of arrival: Ambulatory Limitations: No Limitations - History of Present Illness Initial comments: 26-year-old female presents to the ED complaining chest pain earlier this a.m.. Upon entering the room patient is sitting British style in the bed eating a large pizza from [employer]. States that she no longer has pain. She states that she has a history of anxiety. Patient states that she came to the hospital due to concerns that her mother had a NH at the age of 44 due to crack cocaine and meth. Patient denies any drug use. Patient states pain this a.m. was a 2 out of 10 but at present time no pain. She denies any shortness of breath, fever, chills or abdominal pain. No acute distress noted. No ill appearance noted. -: This morning Location: chest Radiation: non-radiation Severity scale (0 -10): 2 Quality: aching Consistency: intermittent Improves with: none Worsens with: none Associated Symptoms: denies other symptoms - Related Data Home Medications Medication Instructions Recorded Confirmed Last Taken Famotidine [Pepcid] 1 tab PO DAILY 05/29/18 07/15/18 Unknown Ferrous Sulfate 325 mg PO BID 05/29/18 07/15/18 07/12/18 Vit-Fe Fumar-FA [ 1 tab PO QDAY 05/29/18 07/15/18 05/29/18 09:00 Vitamin] 1 Previous Rx's Medication Instructions Recorded Last Taken Type oxyCODONE /ACETAMINOPHEN [Percocet 1 tab PO Q4HR PRN 14 Days #30 tab 07/14/18 Unknown Rx 5/325] Ferrous Sulfate [Feosol 325 MG tab] 325 mg PO QDAY #30 tablet 07/17/18 Unknown Rx Acetaminophen [Mapap] 500 mg PO Q6H PRN #30 tablet 11/16/19 Unknown Rx cephALEXin [Keflex] 500 mg PO Q8HR #30 capsule 11/16/19 Unknown Rx Allergies Allergy/AdvReac Type Severity Reaction Status Date / Time ibuprofen [From Motrin] AdvReac Vomiting Verified 04/14/17 21:38 ED Review of Systems ROS: Stated complaint: CHEST RACING/SHAKING Other details as noted in HPI Constitutional: denies: chills, fever Eyes: denies: eye pain, eye discharge, vision change ENT: denies: ear pain, throat pain Respiratory: denies: cough, shortness of breath, wheezing Cardiovascular: denies: chest pain, palpitations Endocrine: no symptoms reported Gastrointestinal: denies: abdominal pain, nausea, diarrhea Genitourinary: denies: urgency, dysuria, discharge Musculoskeletal: denies: back pain, joint swelling, arthralgia Skin: denies: rash, lesions Neurological: denies: headache, weakness, paresthesias Psychiatric: denies: anxiety, depression Hematological/Lymphatic: denies: easy bleeding, easy bruising ED Past Medical Hx - Past Medical History Hx Hypertension: No Hx Congestive Heart Failure: No Hx Diabetes: No Hx Deep Vein Thrombosis: No Hx Renal Disease: No Hx Sickle Cell Disease: No Hx Seizures: No Hx Psychiatric Treatment: (depression) Hx Asthma: No Hx COPD: No Hx HIV: No Additional medical history: Pt Denies - Surgical History Past Surgical History?: No Additional Surgical History: Pt Denies - Social History Smoking Status: Never Smoker - Medications Home Medications: Home Medications Medication Instructions Recorded Confirmed Last Taken Type Famotidine [Pepcid] 1 tab PO DAILY 05/29/18 07/15/18 Unknown History Ferrous Sulfate 325 mg PO BID 05/29/18 07/15/18 07/12/18 History Vit-Fe Fumar-FA [ 1 tab PO QDAY 05/29/18 07/15/18 05/29/18 09:00 History Vitamin] 1 oxyCODONE /ACETAMINOPHEN [Percocet 1 tab PO Q4HR PRN 14 Days #30 tab 07/14/18 Unknown Rx 5/325] Ferrous Sulfate [Feosol 325 MG tab] 325 mg PO QDAY #30 tablet 07/17/18 Unknown Rx Acetaminophen [Mapap] 500 mg PO Q6H PRN #30 tablet 11/16/19 Unknown Rx cephALEXin [Keflex] 500 mg PO Q8HR #30 capsule 11/16/19 Unknown Rx ED Physical Exam - General Limitations: No Limitations General appearance: alert, in no apparent distress - Head Head exam: Present: atraumatic, normocephalic - Eye Eye exam: Present: normal appearance - ENT ENT exam: Present: mucous membranes moist - Neck Neck exam: Present: normal inspection - Respiratory Respiratory exam: Present: normal lung sounds bilaterally. Absent: respiratory distress - Cardiovascular Cardiovascular Exam: Present: regular rate, normal rhythm. Absent: systolic murmur, diastolic murmur, rubs, gallop - GI/Abdominal GI/Abdominal exam: Present: soft, normal bowel sounds - Extremities Exam Extremities exam: Present: normal inspection - Back Exam Back exam: Present: normal inspection - Neurological Exam Neurological exam: Present: alert, oriented X3 - Psychiatric Psychiatric exam: Present: normal affect, normal mood - Skin Skin exam: Present: warm, dry, intact, normal color. Absent: rash ED Course Vital Signs 01/12/22 01/12/22 12:49 16:17 Temperature 98.7 F Pulse Rate 105 H Respiratory 16 Rate Blood Pressure 145/64 O2 Sat by Pulse 100 98 Oximetry ED Medical Decision Making - Lab Data Result diagrams: 01/12/22 14:31 01/12/22 14:31 - EKG Data EKG shows normal: sinus rhythm - EKG Data Interpretation: normal EKG, nonspecific ST-T wave cheryl - Radiology Data [facility] [address] [place] [address] XRay Report Signed Patient: PHILIP MENG MR#: [id number] : 1995 Acct:[id number] Age/Sex: 26 / F ADM Date: 01/12/22 Loc: ED Attending Dr: Ordering Physician: CASSIE ALMARAZ MD Date of Service: 01/12/22 Procedure(s): XR chest routine 2V Accession Number(s): [id number] cc: ED MD RUFINA Fluoro Time In Minutes: CHEST 2 VIEWS INDICATION / CLINICAL INFORMATION: Chest pain/pressure since 8:30 this morning. Shortness of breath and near syncope. COMPARISON: None available. FINDINGS: SUPPORT DEVICES: None. HEART / MEDIASTINUM: The heart size and pulmonary vasculature are normal. The aorta is normal in caliber. LUNGS / PLEURA: No significant pulmonary or pleural abnormality. No pneumothorax. ADDITIONAL FINDINGS: No significant additional findings. IMPRESSION: No acute findings. Signer Name: Hi Arvizu MD Signed: 01/12/2022 1:19 PM Workstation Name: [id number] Transcribed By: RT Dictated By: Hi Arvizu MD Electronically Authenticated By: Hi Arvizu MD Signed Date/Time: 01/12/22 1319 DD/ 1317 TD/TT: - Medical Decision Making 26-year-old female presents to the ED complaining chest pain earlier this a.m.. Upon entering the room patient is sitting British style in the bed eating a large pizza from [employer]. States that she no longer has pain. She states that she has a history of anxiety. Patient states that she came to the hospital due to concerns that her mother had a NH at the age of 46 due to crack cocaine and meth. Patient denies any drug use. Patient states pain this a.m. was a 2 out of 10 but at present time no pain. She denies any shortness of breath, fever, chills or abdominal pain. No acute distress noted. No ill appearance noted Rechecked the patient is resting quietly quietly and comfortable and feeling better. I discussed the results of diagnostic study, my clinical impression and the plan for further treatment with the patient. Patient agrees with plan and discharge at this present time. All question addressed. I have given the patient instruction regarding a diagnosis ,expectation ,follow- up and return precaution. I explained to the patient that emergent condition may arise and to return to the ED for new worsen and any new persisting condition. I have explained the importance of following up with the primary care physician or referral physician listed below has instructed. The patient verbalized under standing of discharge instruction. Critical care attestation.: If time is entered above; I have spent that time in minutes in the direct care of this critically ill patient, excluding procedure time. ED Disposition Clinical Impression: Chest pain, atypical Disposition: 01 HOME / SELF CARE / HOMELESS Is pt being admited?: No Does the pt Need Aspirin: No Condition: Stable Instructions: Nonspecific Chest Pain, Adult Referrals: SANDRA ESTRADA MD [Staff Physician] - 3-5 Days Forms: Work/School Release Form(ED) Time of Disposition: 15:55
[2022-01-12 15:49] LABS: Amphetamine Screen,Urine Negative; Benzodiazepines Screen,Urine Negative; Cannabinoid Screen,Urine Negative; Cocaine Screen,Urine Negative; Methadone Screen,Urine Negative; Opiate Screen,Urine Negative
--- NOTE | 2022-01-13 09:05 | Electrocardiograph Report ---
[facility] Test Date: 2022-01-12 Test Time: 12:55:11 Pat Name: PHILIP MENG Department: Room: Gender: F Claims Service Adjustor: LEANNA HOLLISB: 1995 Requested By: ED DOC Order Number: [id number] Reading MD: Darryl Velásquez Measurements Intervals [place] Rate: 95 P: 65 [place]: 126 QRS: 64 QRSD: 66 T: 4 QT: 318 QTc: 400 Interpretive Statements Sinus rhythm Probable left atrial enlargement nonspecific st-t No previous ECG available for comparison Electronically Signed On 01-13-2022 9:05:19 EDT by Darryl Velásquez
== END 2022-01-12 16:53 | disposition home or self-care (01) ==
LOC: ED 12:34
DX: R07.89 Other chest pain (principal); F32.9 Major depressive disorder, single episode, unspecified; Z88.6 Allergy status to analgesic agent
CPT/HCPCS: 36415; 71046; 80053; 80307; 81001; 84484; 85025; 85610; 85730; 93005; 99284